=== PATIENT | male | born 1975 | race Two or more races ===

== ENCOUNTER 2024-04-04 08:36 | Emergency (ER) | payer OTHER ==
[~2024-04-04] VITALS: Ht 170.2 cm; Wt 70.0 kg
[~2024-04-04 08:36] MED LIST: CARV25TA47 PO; DOXA2TAB2 MT; FURO40TA5 PO; HYDR50TA40 MT; INSU100I28 SQ; NIFE-32 PO
[2024-04-04 08:40] VITALS: O2SAT 98
[2024-04-04 09:02] LABS: BASOPHILS % 1.3 % (0.0-2.0); EOSINOPHILS % 4.3 % (0.0-5.0); HEMATOCRIT. 29.9 % (42.0-52.0); HEMOGLOBIN. 9.4 g/dL (14.0-18.0); LYMPHOCYTES % 8.8 % (20.0-50.0); MEAN CORPUSCULAR HEMOGLOBIN 29.7 pg (28.0-32.0); MEAN CORPUSCULAR HGB CONC 31.5 g/dL (31.0-37.0); MEAN CORPUSCULAR VOLUME 94.1 fL (80.0-94.0); MEAN PLATELET VOLUME 7.8 fl (7.4-10.4); MONOCYTES % 10.3 % (2.0-8.0); NEUTROPHILS % 75.3 % (40.0-76.0); PLATELET 197 x1000/uL (130-400); RED BLOOD CELL COUNT 3.18 mill/uL (4.7-6.1); RED CELL DISTRIBUTION WIDTH 17.3 % (11.6-14.6); WHITE BLOOD COUNT 5.5 x1000/uL (4.5-11.0)
[2024-04-04 09:09] LABS: CHLORIDE 103 mEq/L (98-107); POTASSIUM 3.5 mEq/L (3.5-5.1); SODIUM 139 mEq/L (136-145)
[2024-04-04 09:10] LABS: CALCIUM 8.4 mg/dL (8.7-10.4); CARBON DIOXIDE 32 mEq/L (21-32)
[2024-04-04 09:12] LABS: PROTHROMBIN TIME 11.6 sec (9.6-11.0)
[2024-04-04 09:15] LABS: GLUCOSE 97 mg/dL (70-105); TROPONIN I HIGH SENSITIVITY 48 ng/L (3.0-53); UREA NITROGEN BLOOD 12 mg/dL (9-23)
[2024-04-04 09:17] LABS: CREATININE 2.8 mg/dL (0.6-1.3)
[2024-04-04] MEDS: SODIUM CHLORIDE 0.9% 1,000 ML IV ONE (09:17)
[2024-04-04 12:03] VITALS: BP 121/63; PULSE 68; RESP 16; TEMP 36.94740; O2SAT 99
== END 2024-04-04 12:14 | disposition home or self-care (01) ==
LOC: ER 08:36
DX: I95.9 Hypotension, unspecified (principal); R42 Dizziness and giddiness; I12.0 Hypertensive chronic kidney disease with stage 5 chronic kidney disease or end stage renal disease; E11.22 Type 2 diabetes mellitus with diabetic chronic kidney disease; N18.6 End stage renal disease; Z99.2 Dependence on renal dialysis; Z79.4 Long term (current) use of insulin
CPT/HCPCS: 80048; 83880; 83605; 83690; 85025; 85610; 87040; 84484; 36415; 84145; 71045; 93005; 96360; 99291; J7030; Z7610